=== PATIENT | female | born 1975 | race Caucasian/White ===

== ENCOUNTER 2020-11-08 12:22 | Day surgery (SDC) | payer OTHER ==
[2020-11-08] VITALS (11 sets, daily range): BP systolic 102–133; BP diastolic 59–91
[~2020-11-08] VITALS: Ht 165.1 cm; Wt 80.3 kg
[2020-11-08] MEDS ORDERED: NS IV 1000 ML 1,000 ML IV SCH (12:45)
--- NOTE | 2020-11-08 12:48 | ED GI ---
General Chief Complaint: Abdominal/GI Problems Stated Complaint: ABD PAIN History of Present Illness Date Seen by Provider: Nov 08, 2020 Time Seen by Provider: 12:40 Initial Comments 45-year-old female presents with abdominal pain which began this morning when she woke up. Initially began in her upper abdomen associated with some generalized feeling of "stomachache". Patient denies preceding illness, fever chills or nausea. She has had no vomiting. She last ate this morning around 830 a few crackers and had a normal bowel movement without any relief. Pain over the last several hours has gradually localized to her right lower abdomen and is worse with movement and better with rest. Past surgical history significant for hysterectomy and cholecystectomy. Allergies and Home Medications Allergies Coded Allergies: No Known Drug Allergies (Unverified , 11/08/20) Patient Home Medication List Home Medication List Reviewed: Yes Review of Systems Review of Systems Constitutional: No fever, No malaise, No weakness EENTM: No Symptoms Reported Respiratory: No Symptoms Reported; Denies Cough, Denies Shortness of Air Cardiovascular: Denies Chest Pain, Denies Edema, Denies Palpitations, Denies Syncope Gastrointestinal: Denies Abdomen Distended; Abdominal Pain; Denies Blood Streaked Stools, Denies Constipated, Denies Diarrhea, Denies Nausea; Poor Appetite; Denies Poor Fluid Intake, Denies Vomiting Genitourinary: Denies Burning, Denies Drainage, Denies Frequency, Denies Pain, Denies Urgency Musculoskeletal: No back pain, No joint pain Skin: No change in color, No rash Past Soxduzi-Lziqdy-Qebcyk Hx Past Med/Social Hx: Reviewed Nursing Past Med/Soc Hx Patient Social History Alcohol Use: Denies Use Smoking Status: Never a Smoker 2nd Hand Smoke Exposure: No Recent Hopitalizations: No Seasonal Allergies Seasonal Allergies: No Past Medical History Surgeries: Yes Gallbladder, Hysterectomy Respiratory: No Cardiac: No 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 oz. kg; BMI Method: General Appearance: WD/WN, no apparent distress Neck: non-tender, supple Respiratory: chest non-tender, lungs clear, normal breath sounds, no respira tory distress Cardiovascular: regular rate, rhythm, no edema, no JVD Gastrointestinal: normal bowel sounds, soft, no organomegaly, no pulsatile mass; No distended, No guarding, No rebound; tenderness (RLQ); No hernia, No mass, No hepatomegaly, No spleenomegaly Extremities: non-tender, no pedal edema Back: no CVA tenderness, no vertebral tenderness Neurologic/Psychiatric: alert, normal mood/affect, oriented x 3 Skin: normal color, warm/dry Progress/Results/Core Measures Results/Orders Lab Results Laboratory Tests Test 11/08/20 12:25 11/08/20 12:45 Range/Units Urine Color YELLOW Urine Clarity CLEAR Urine pH 5.5 5-9 Urine Specific [place] 1.010 L 1.016-1.022 Urine Protein NEGATIVE NEGATIVE Urine Glucose (UA) NEGATIVE NEGATIVE Urine Ketones NEGATIVE NEGATIVE Urine Nitrite NEGATIVE NEGATIVE Urine Bilirubin NEGATIVE NEGATIVE Urine Urobilinogen NORMAL < = 1.0 MG/DL Urine Leukocyte Esterase NEGATIVE NEGATIVE Urine RBC (Auto) NEGATIVE NEGATIVE Urine RBC NONE /HPF Urine WBC NONE /HPF Urine Squamous Epithelial Cells 2-5 /HPF Urine Crystals NONE /LPF Urine Bacteria NEGATIVE /HPF Urine Casts NONE /LPF Urine Mucus NEGATIVE /LPF Urine Culture Indicated NO White Blood Count 12.9 H 4.3-11.0 10^3/uL Red Blood Count 4.48 4.35-5.85 10^6/uL Hemoglobin 13.4 11.5-16.0 G/DL Hematocrit 39 35-52 % Mean Corpuscular Volume 88 80-99 FL Mean Corpuscular Hemoglobin 30 25-34 PG Mean Corpuscular Hemoglobin Concent 34 32-36 G/DL Red Cell Distribution Width 12.2 10.0-14.5 % Platelet Count 252 130-400 10^3/uL Mean Platelet Volume 10.0 7.4-10.4 FL Immature Granulocyte % (Auto) 0 % Neutrophils (%) (Auto) 78 H 42-75 % Lymphocytes (%) (Auto) 14 12-44 % Monocytes (%) (Auto) 6 0-12 % Eosinophils (%) (Auto) 1 0-10 % Basophils (%) (Auto) 0 0-10 % Neutrophils # (Auto) 10.1 H 1.8-7.8 X 10^3 Lymphocytes # (Auto) 1.8 1.0-4.0 X 10^3 Monocytes # (Auto) 0.8 0.0-1.0 X 10^3 Eosinophils # (Auto) 0.1 0.0-0.3 10^3/uL Basophils # (Auto) 0.0 0.0-0.1 10^3/uL Immature Granulocyte # (Auto) 0.0 0.0-0.1 10^3/uL Sodium Level 136 135-145 MMOL/L Potassium Level 3.9 3.6-5.0 MMOL/L Chloride Level 102 98-107 MMOL/L Carbon Dioxide Level 24 21-32 MMOL/L Anion Gap 10 5-14 MMOL/L Blood Urea Nitrogen 9 7-18 MG/DL Creatinine 0.58 L 0.60-1.30 MG/DL Estimat Glomerular Filtration Rate > 60 BUN/Creatinine Ratio 16 Glucose Level 131 H 70-105 MG/DL Calcium Level 9.5 8.5-10.1 MG/DL Corrected Calcium 8.5-10.1 MG/DL Total Bilirubin 0.2 0.1-1.0 MG/DL Aspartate Amino Transf (AST/SGOT) 16 5-34 U/L Alanine Aminotransferase (ALT/SGPT) 16 0-55 U/L Alkaline Phosphatase 75 40-136 U/L Total Protein 7.5 6.4-8.2 GM/DL Albumin 4.6 H 3.2-4.5 GM/DL Lipase 33 8-78 U/L My Orders Orders - MAXIMO RAMIREZ DO Ed Iv/Invasive Line Start (11/08/20 12:42) Cbc With Automated Diff (11/08/20 12:42) Comprehensive Metabolic Panel (11/08/20 12:42) Lipase (11/08/20 12:42) Urinalysis (11/08/20 12:42) Ct Abdomen/Pelvis W (11/08/20 12:42) Ns Iv 1000 Ml (Sodium Chloride 0.9%) (11/08/20 12:45) Iohexol Injection (Omnipaque 350 Mg/Ml 1 (11/08/20 13:00) Received Contrast (Hold Metformin- Contr (11/08/20 13:00) Sodium Chloride Flush (Catheter Flush Sy (11/08/20 13:00) Ns (Ivpb) (Sodium Chloride 0.9% Ivpb Bag (11/08/20 13:00) Medications Given in ED Current Medications Medications Dose Ordered Sig/Micaela Route Start Time Stop Time Status Last Admin Dose Admin Iohexol 100 ml ONCE ONCE IV 11/08/20 13:00 11/08/20 13:01 DC 11/08/20 13:07 100 ML Sodium Chloride 10 ml NEEDED PRN IV 11/08/20 13:00 11/08/20 13:07 10 ML Sodium Chloride 100 ml ONCE ONCE IV 11/08/20 13:00 11/08/20 13:01 DC 11/08/20 13:07 80 ML Vital Signs/I&O 11/08/20 12:25 Temp 36.5 Pulse 68 Resp 16 B/P (MAP) 133/85 (101) Pulse Ox 100 O2 Delivery Room Air Progress Progress Note : Progress Note Patient well-appearing, normal vital signs and in no distress. Labs without any significant abnormality. CT showing appendicitis. General surgeon called and patient on her way to [place] to same-day surgery for an appendectomy. Diagnostic Imaging Diagonstic Imaging: CT Comments FINDINGS: Gallbladder is surgically absent. There is mild biliary ductal ectasia. No focal hepatic, pancreatic, adrenal gland or splenic abnormality is identified. The kidneys are unremarkable. There is inflammation with mural thickening throughout the appendix. The appendix contains an approximately 0.7 cm calcification. There is trace pelvic free fluid. Unopacified urinary bladder is unremarkable. Probable dominant cyst is seen in the left ovary reaching 2.3 cm in size. There is bulging of L4-L5 and L5-S1 discs. IMPRESSION: Findings are compatible with acute appendicitis. No definite abscess is identified. There is a prominent left ovarian cyst and note is made of early degenerative disc disease in the lower lumbar region. Dictated on workstation # [id number] Dict: 11/08/20 1314 Trans: 11/08/20 1319 [facility] [id number] Interpreted by: MARIS HOUGH MD Electronically signed by: Departure Communication (Admissions) Time/Spoke to Admitting Phy: 13:[address] Salazar who accepts patient to "same day surgery" for appendectomy today. Impression Primary Impression: Acute appendicitis Qualified Codes: K35.30 - Acute appendicitis with localized peritonitis, without perforation or gangrene Additional Impression: Abdominal pain Qualified Codes: R10.31 - Right lower quadrant pain Disposition: 30 STILL A PATIENT Condition: Stable Admissions Decision to Admit Reason: Admit from ER (General) Decision to Admit/Date: Nov 08, 2020 Time/Decision to Admit Time: 13:30 Departure-Patient Inst. Referrals: [facility] (PCP/Family) Primary Care Physician MAXIMO RAMIREZ DO Nov 08, 2020 12:48
[2020-11-08 12:53] LABS: BACTERIA,URINE NEGATIVE /HPF; BILIRUBIN,URINE NEGATIVE (NEGATIVE); CLARITY,URINE CLEAR; COLOR,URINE YELLOW; GLUCOSE, URINE (UA) NEGATIVE (NEGATIVE); KETONES,URINE NEGATIVE (NEGATIVE); LEUKOCYTE ESTERASE ,URINE NEGATIVE (NEGATIVE); NITRITE,URINE NEGATIVE (NEGATIVE); PH,URINE 5.5 (5-9); PROTEIN,URINE NEGATIVE (NEGATIVE)
[2020-11-08 12:54] LABS: BASOPHILS % (AUTO) 0 % (0-10); EOSINOPHILS # (AUTO) 0.1 10^3/uL (0.0-0.3); EOSINOPHILS % (AUTO) 1 % (0-10); HEMATOCRIT 39 % (35-52); HEMOGLOBIN 13.4 G/DL (11.5-16.0); LYMPHOCYTES # (AUTO) 1.8 X 10^3 (1.0-4.0); LYMPHOCYTES % (AUTO) 14 % (12-44); MEAN CORPUSCULAR HEMOGLOBIN 30 PG (25-34); MEAN CORPUSCULAR HGB CONC 34 G/DL (32-36); MEAN CORPUSCULAR VOLUME 88 FL (80-99); MONOCYTES # (AUTO) 0.8 X 10^3 (0.0-1.0); MONOCYTES % (AUTO) 6 % (0-12); NEUTROPHILS # (AUTO) 10.1 X 10^3 (1.8-7.8); NEUTROPHILS % (AUTO) 78 % (42-75); PLATELET COUNT 252 10^3/uL (130-400); WHITE BLOOD COUNT 12.9 10^3/uL (4.3-11.0)
[2020-11-08] MEDS ORDERED: IOHEXOL 350 MG/ML 100 ML (OMNIPAQUE 350) VIAL IV ONE (13:00)
[2020-11-08] MEDS ORDERED: HOLD METFORMIN - RECEIVED CONTRAST 20 ML VIAL IV SCH (13:00)
[2020-11-08] MEDS ORDERED: NS 100 ML (IVPB) BAG IV ONE (13:00)
[2020-11-08] MEDS ORDERED: CATHETER FLUSH 10 ML SYR IV PRN (13:00)
--- NOTE | 2020-11-08 13:20 | Diagnostic Imaging Report ---
PROCEDURE: CT abdomen and pelvis with contrast. TECHNIQUE: Multiple contiguous axial images were obtained through the abdomen and pelvis after administration of intravenous contrast. Auto Exposure Controls were utilized during the CT exam to meet ALARA standards for radiation dose reduction. All CT scans use one or more of the following dose optimizing techniques: automated exposure control, MA and/or KvP adjustment based on patient size and exam type or iterative reconstruction. INDICATION: Right lower quadrant abdominal pain. FINDINGS: Gallbladder is surgically absent. There is mild biliary ductal ectasia. No focal hepatic, pancreatic, adrenal gland or splenic abnormality is identified. The kidneys are unremarkable. There is inflammation with mural thickening throughout the appendix. The appendix contains an approximately 0.7 cm calcification. There is trace pelvic free fluid. Unopacified urinary bladder is unremarkable. Probable dominant cyst is seen in the left ovary reaching 2.3 cm in size. There is bulging of L4-L5 and L5-S1 discs. IMPRESSION: Findings are compatible with acute appendicitis. No definite abscess is identified. There is a prominent left ovarian cyst and note is made of early degenerative disc disease in the lower lumbar region. Dictated by: Dictated on workstation # [id number]
[2020-11-08 13:25] LABS: ALANINE AMINOTRANSFERASE 16 U/L (0-55); ALBUMIN 4.6 GM/DL (3.2-4.5); ALKALINE PHOSPHATASE 75 U/L (40-136); BILIRUBIN,TOTAL 0.2 MG/DL (0.1-1.0); BUN/CREATININE RATIO 16; CALCIUM 9.5 MG/DL (8.5-10.1); CARBON DIOXIDE 24 MMOL/L (21-32); CHLORIDE 102 MMOL/L (98-107); CREATININE SERUM 0.58 MG/DL (0.60-1.30); GFR ESTIMATED > 60; GLUCOSE 131 MG/DL (70-105); LIPASE 33 U/L (8-78); POTASSIUM 3.9 MMOL/L (3.6-5.0); SODIUM 136 MMOL/L (135-145); TOTAL PROTEIN 7.5 GM/DL (6.4-8.2)
[2020-11-08] MEDS: LACTATED RINGERS 1,000 ML IV SCH ×2 (15:00→16:20)
[2020-11-08] MEDS ORDERED: ONDANSETRON 4 MG/2 ML (SDV) Z0FRAN IV ONE (15:06)
[2020-11-08] MEDS ORDERED: SUCCINYLCHOLINE INJ 100 MG/5 ML SYR/VIAL INJ ONE (15:06)
[2020-11-08] MEDS ORDERED: ROCURONIUM 10 MG/ML 5 ML SYRINGE IV ONE (15:06)
[2020-11-08] MEDS ORDERED: MIDAZOLAM 2 MG/2 ML (VERSED) VIAL INJ ONE (15:06)
[2020-11-08] MEDS ORDERED: LIDOCAINE PF 2% 5 ML (XYLOCAINE) VIAL INJ ONE (15:06)
[2020-11-08] MEDS ORDERED: NEOSTIGMINE 3 MG/3 ML VIAL IV ONE (15:07)
[2020-11-08] MEDS ORDERED: GLYCOPYRROLATE 0.2 MG/ML (ROBINUL) 2 ML VIAL IV ONE (15:07)
[2020-11-08] MEDS ORDERED: fentaNYL INJECTION 100 MCG/2 ML AMP IV ONE ×2 (15:22→16:35)
[2020-11-08] MEDS ORDERED: ceFAZolin 2 GM IV Premixed 50 ML IV ONE (15:41)
[2020-11-08] MEDS ORDERED: METOCLOPRAMIDE INJ 10 MG/2 ML (REGLAN) IV ONE (15:51)
[2020-11-08] MEDS ORDERED: LIDOCAINE/EPI 1%-1:100,000 (XYLOCAINE) 50 ML INJ ONE (16:10)
[2020-11-08] MEDS ORDERED: SEVOFLURANE (ULTANE) 15 ML INHAL SOLN INH ONE (16:36)
[2020-11-08] MEDS ORDERED: ACHD5005 PO (16:37)
[2020-11-08] MEDS ORDERED: DOCU-143 PO (16:37)
[2020-11-08] MEDS ORDERED: proPOfol 200 MG/20 ML (DIPRIVAN) VIAL IV ONE (16:37)
[2020-11-08] MEDS ORDERED: PHENYLEPHRINE 100 MCG/ML 10 ML (ANESTHESIA) SYR IV ONE (16:38)
[2020-11-08] MEDS ORDERED: metroNIDAZOLE 500MG/100ML IVPB 100 ML IV ONE (17:30)
[2020-11-08] MEDS ORDERED: HYDROcodone/APAP 5 MG/325 MG (LORTAB) TAB ONE (18:04)
[2020-11-08] MEDS ORDERED: HYDROcodone/APAP 5 MG/325 MG (LORTAB) TAB PO ONE (18:15)
== END 2020-11-08 18:55 | disposition home or self-care (01) ==
LOC: ER FS 12:25 → SDC 13:57
PROVIDERS: ATTEND Surgery
DX: K35.80 Unspecified acute appendicitis (principal); Z90.710 Acquired absence of both cervix and uterus
CPT/HCPCS: 36415; 74177; 80053; 81000; 83690; 85025

== ENCOUNTER → 2020-11-08 | Day surgery (SDC) | payer OTHER ==
[~2020-11-08] MED LIST: ACHD5005 PO; DOCU-143 PO; GLYCOPYRROLATE 0.2 MG/ML (ROBINUL) 2 ML VIAL ONE; HYDROmorphone 2 MG/ML VIAL (DILAUDID) IV ONE; LIDOCAINE PF 2% 5 ML (XYLOCAINE) VIAL ONE; LIDOCAINE/EPI 1%-1:100,000 (XYLOCAINE) 50 ML ONE; METOCLOPRAMIDE INJ 10 MG/2 ML (REGLAN) ONE; MIDAZOLAM 2 MG/2 ML (VERSED) VIAL ONE; NEOSTIGMINE 3 MG/3 ML VIAL ONE; ONDANSETRON 4 MG/2 ML (SDV) Z0FRAN IVP PRN; ONDANSETRON 4 MG/2 ML (SDV) Z0FRAN ONE; PHENYLEPHRINE 100 MCG/ML 10 ML (ANESTHESIA) SYR ONE; ROCURONIUM 10 MG/ML 5 ML SYRINGE IV ONE; SEVOFLURANE (ULTANE) 15 ML INHAL SOLN ONE; SUCCINYLCHOLINE INJ 100 MG/5 ML SYR/VIAL ONE; ceFAZolin 2 GM IV Premixed 50 ML IV ONE; ceFAZolin 2 GM IV Premixed 50 ML ONE; fentaNYL INJECTION 100 MCG/2 ML AMP IV ONE; fentaNYL INJECTION 100 MCG/2 ML AMP ONE; metroNIDAZOLE 500MG/100ML IVPB 100 ML IV ONE; metroNIDAZOLE 500MG/100ML IVPB 100 ML ONE; proPOfol 200 MG/20 ML (DIPRIVAN) VIAL IV ONE
[2020-11-08] MEDS: LACTATED RINGERS 1,000 ML IV PRN ×2 (15:12→16:21)
== END | disposition home or self-care (01) ==
LOC: SDC 13:57
PROVIDERS: ATTEND Surgery
DX: K35.80 Unspecified acute appendicitis (principal); Z53.9 Procedure and treatment not carried out, unspecified reason; Z90.710 Acquired absence of both cervix and uterus; Z20.822 Contact with and (suspected) exposure to COVID-19
CPT/HCPCS: 87081; 88304; U0002; 87635

== ENCOUNTER 2021-12-18 05:32 | Outpatient (CLI) | payer OTHER ==
[~2021-12-18] VITALS: Ht 165.1 cm; Wt 82.7 kg
[~2021-12-18 05:32] MED LIST changes: -GLYCOPYRROLATE 0.2 MG/ML (ROBINUL) 2 ML VIAL ONE; -HYDROmorphone 2 MG/ML VIAL (DILAUDID) IV ONE; -LIDOCAINE PF 2% 5 ML (XYLOCAINE) VIAL ONE; -LIDOCAINE/EPI 1%-1:100,000 (XYLOCAINE) 50 ML ONE; -METOCLOPRAMIDE INJ 10 MG/2 ML (REGLAN) ONE; -MIDAZOLAM 2 MG/2 ML (VERSED) VIAL ONE; -NEOSTIGMINE 3 MG/3 ML VIAL ONE; -ONDANSETRON 4 MG/2 ML (SDV) Z0FRAN IVP PRN; -ONDANSETRON 4 MG/2 ML (SDV) Z0FRAN ONE; -PHENYLEPHRINE 100 MCG/ML 10 ML (ANESTHESIA) SYR ONE; -ROCURONIUM 10 MG/ML 5 ML SYRINGE IV ONE; -SEVOFLURANE (ULTANE) 15 ML INHAL SOLN ONE; -SUCCINYLCHOLINE INJ 100 MG/5 ML SYR/VIAL ONE; -ceFAZolin 2 GM IV Premixed 50 ML IV ONE; -ceFAZolin 2 GM IV Premixed 50 ML ONE; -fentaNYL INJECTION 100 MCG/2 ML AMP IV ONE; -fentaNYL INJECTION 100 MCG/2 ML AMP ONE; -metroNIDAZOLE 500MG/100ML IVPB 100 ML IV ONE; -metroNIDAZOLE 500MG/100ML IVPB 100 ML ONE; -proPOfol 200 MG/20 ML (DIPRIVAN) VIAL IV ONE
[2021-12-18] MEDS ORDERED: MULT-141 PO (14:41)
[2021-12-18] MEDS ORDERED: SEMA0.253 SQ (14:41)
[2021-12-18] MEDS ORDERED: ERGO1250 PO (14:41)
== END 2021-12-18 14:43 ==
LOC: PREOP 05:32
PROVIDERS: ATTEND Surgery
DX: Z01.818 Encounter for other preprocedural examination (principal)

== ENCOUNTER 2021-12-26 07:59 | Day surgery (SDC) | payer OTHER ==
[~2021-12-26] VITALS: Ht 165 cm; Wt 83.0 kg
[~2021-12-26 07:59] MED LIST changes: +ERGO1250 PO; +MULT-141 PO; +SEMA0.253 SQ
[2021-12-26] MEDS ORDERED: LACTATED RINGERS 1,000 ML IV ONE (08:05)
[2021-12-26] MEDS ORDERED: LACTATED RINGERS 1,000 ML IV STA (08:14)
[2021-12-26 08:17] VITALS: BP 113/79
--- NOTE | 2021-12-26 08:36 | Progress Note-Pre Operative ---
Pre-Operative Progress Note H&P Reviewed The H&P was reviewed, patient examined and no changes noted. Date Seen by Provider: Dec 26, 2021 Time Seen by Provider: 08:36 Date H&P Reviewed: Dec 26, 2021 Time H&P Reviewed: 08:36 Pre-Operative Diagnosis: screening colonoscopy ROSALIND MAURICIO DO Dec 26, 2021 08:36
[2021-12-26] MEDS ORDERED: PROPOFOL INJECTION 50 ML IV ONE (08:50)
--- NOTE | 2021-12-26 09:19 | Anesthesia-General Post-Op ---
MAC Patient Condition Mental Status/LOC: Same as Preop Cardiovascular: Satisfactory Nausea/Vomiting: Absent Respiratory: Satisfactory Pain: Controlled Complications: Absent Post Op Complications Complications None Follow Up Care/Instructions Patient Instructions None needed. Anesthesiology Discharge Order Discharge Order Patient is doing well, no complaints, stable vital signs, no apparent adverse anesthesia problems. No complications reported per nursing. NICOLETTE JACINTO CRNA Dec 26, 2021 09:19
[2021-12-26 09:20] VITALS: BP 103/65
--- NOTE | 2021-12-26 09:22 | Progress Note-Post Operative ---
Post-Operative Progess Note Surgeon (s)/Case Manager Specialist (s) Surgeon ROSALIND MAURICIO DO Case Manager Specialist: na Pre-Operative Diagnosis screening colonoscopy Post-Operative Diagnosis normal colon Procedure & Operative Findings Date of Procedure 12/26/21 Procedure Performed/Findings colonoscopy Anesthesia Type per electrical tryout person Estimated Blood Loss Estimated blood loss (mL): none Specimens/Packing Specimens Removed na ROSALIND MAURICIO DO Dec 26, 2021 09:22
[2021-12-26 09:23] VITALS: BP 108/65
--- NOTE | 2021-12-26 09:24 | Discharge Inst-Simple/Standard ---
Discharge Inst-Standard Patient Instructions/Follow Up Plan of Care/Instructions/FU: Marie 10 years unless family history of colon cancer and then 5 years. Any issues before that be seen at that time. Activity as Tolerated: Yes Discharge Diet: Regular Diet ROSALIND MAURICIO DO Dec 26, 2021 09:23
[2021-12-26 09:25] VITALS: BP 108/65
[2021-12-26 09:40] VITALS: BP 111/72
[2021-12-26 09:53] VITALS: BP 110/65
--- NOTE | 2021-12-26 12:40 | OPERATIVE REPORT ---
DATE OF SERVICE: 12/26/2021 PREOPERATIVE DIAGNOSIS: Screening colonoscopy. POSTOPERATIVE DIAGNOSIS: Normal colon. PROCEDURE: Colonoscopy. SURGEON: Rosalind Salazar DO ANESTHESIA: Per DIRECTOR SURGICAL. ESTIMATED BLOOD LOSS: None. COMPLICATIONS: None. INDICATIONS: The patient is a 46-year-old female needing screening colonoscopy. She understands risks and benefits of procedure and wishes to proceed. Consent was signed in the chart. DESCRIPTION OF PROCEDURE: The patient was taken to the endoscopy suite, placed in left lateral recumbent position. Timeout was performed. Digital rectal exam was performed. No palpable polyps, masses or ulcerations. Scope was inserted in the rectum and advanced all the way to cecum with minimal difficulty. Prep was adequate. Scope was slowly retracted back. No polyps, masses or ulcerations within the cecum, ascending, transverse, descending and sigmoid colon. Once in the rectum, scope was retroflexed noting no other pathology. Scope was returned to its normal position, slowly withdrawn until completely removed. The patient tolerated procedure well without any complications. She was taken to recovery room in stable condition. RECOMMENDATIONS: The patient will need repeat colonoscopy in 10 years unless family history of colon cancer, which would then be 5 years. Any issues before that be seen at that time. CC: [facility][1] -- requested, unable to deliver. Job ID: [id number] DocumentID: [id number] Dictated Date: 12/26/2021 09:25:43 Pneumatic Tester Date: 12/26/2021 12:39:35 Dictated By: ROSALIND SALAZAR DO
== END 2021-12-26 09:52 | disposition home or self-care (01) ==
LOC: ENDO 07:59
PROVIDERS: ATTEND Surgery
DX: Z12.11 Encounter for screening for malignant neoplasm of colon (principal); Z87.891 Personal history of nicotine dependence

== ENCOUNTER 2022-06-09 15:45 | Emergency (ER) | payer OTHER ==
[~2022-06-09] VITALS: Ht 165.1 cm; Wt 81.6 kg
--- NOTE | 2022-06-09 15:49 | ED Chest Pain ---
General Chief Complaint: Chest Pain Stated Complaint: CHEST TIGHTNESS BACK PAIN SOB History of Present Illness Date Seen by Provider: Jun 09, 2022 Time Seen by Provider: 15:48 Initial Comments 47-year-old female with no significant PMH is here with complaints of chest discomfort which began around 1 PM today. Patient states that she does not have actual pain but just some type of tightness or discomfort in the retrosternal area. Patient states that this is associated occasionally with a little bit of shortness of breath when the pain hits. Pain is off-and-on and once she reached the ER the pain disappeared. Denies palpitations, recent illness, fever, diarrhea, cough, nausea and vomiting, dizziness. Allergies and Home Medications Allergies Coded Allergies: No Known Drug Allergies (Unverified , 11/08/20) Patient Home Medication List Home Medication List Reviewed: Yes Ergocalciferol (Vitamin D2) (Vitamin D2) 1,250 Mcg Capsule, 1,250 MCG PO WEEK, (Reported) Entered as Reported by: LEVI TAPIA on 12/18/21 144 Multivit with Calcium,Iron,Min (Women's Daily Formula) 1 Each Tablet, 1 EACH PO DAILY, (Reported) Entered as Reported by: LEVI TAPIA on 12/18/21 144 Semaglutide (Wegovy) 0.25 Mg/0.5 Ml Pen.injctr, 0.25 MG SQ WEEK, (Reported) Entered as Reported by: LEVI TAPIA on 12/18/21 1441 Review of Systems Review of Systems Constitutional: no symptoms reported EENTM: No Symptoms Reported Respiratory: No Symptoms Reported Cardiovascular: Chest Pain Gastrointestinal: No Symptoms Reported Genitourinary: No Symptoms Reported Musculoskeletal: no symptoms reported Skin: no symptoms reported Psychiatric/Neurological: No Symptoms Reported Endocrine: No Symptoms Reported Hematologic/Lymphatic: No Symptoms Reported Past Ndmpxpc-Tqzgwo-Wclccy Hx Immunizations Up To Date First/Initial COVID19 Vaccinat: yes Second COVID19 Vaccination Ponce: yes Third COVID19 Vaccination Date: yes Seasonal Allergies Seasonal Allergies: No Past Medical History Surgeries: Yes (c/s x2, ) Appendectomy, Section, Gallbladder, Hysterectomy Respiratory: No Cardiac: No 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 oz. kg; 30.48 BMI Method: General Appearance: No Apparent Distress, WD/WN HEENT: PERRL/EOMI Neck: Full Range of Motion Respiratory: Chest Non Tender, Lungs Clear, Normal Breath Sounds, No Accessory Muscle Use, No Respiratory Distress Cardiovascular: Regular Rate, Rhythm, No Edema, No Murmur, Normal Peripheral Pulses Gastrointestinal: Normal Bowel Sounds, Non Tender, Soft Extremity: Normal Range of Motion Neurologic/Psychiatric: Alert, Oriented x3, Normal Mood/Affect Skin: Normal Color Progress/Results/Core Measures Results/Orders Lab Results Laboratory Tests Test 06/09/22 15:44 06/09/22 18:40 Range/Units White Blood Count 8.8 4.3-11.0 10^3/uL Red Blood Count 4.06 3.80-5.11 10^6/uL Hemoglobin 12.3 11.5-16.0 g/dL Hematocrit 36 35-52 % Mean Corpuscular Volume 87 80-99 fL Mean Corpuscular Hemoglobin 30 25-34 pg Mean Corpuscular Hemoglobin Concent 35 32-36 g/dL Red Cell Distribution Width 12.5 10.0-14.5 % Platelet Count 235 130-400 10^3/uL Mean Platelet Volume 9.8 9.0-12.2 fL Immature Granulocyte % (Auto) 0 % Neutrophils (%) (Auto) 62 42-75 % Lymphocytes (%) (Auto) 28 12-44 % Monocytes (%) (Auto) 7 0-12 % Eosinophils (%) (Auto) 2 0-10 % Basophils (%) (Auto) 1 0-10 % Neutrophils # (Auto) 5.4 1.8-7.8 10^3/uL Lymphocytes # (Auto) 2.4 1.0-4.0 10^3/uL Monocytes # (Auto) 0.6 0.0-1.0 10^3/uL Eosinophils # (Auto) 0.2 0.0-0.3 10^3/uL Basophils # (Auto) 0.1 0.0-0.1 10^3/uL Immature Granulocyte # (Auto) 0.0 0.0-0.1 10^3/uL Sodium Level 136 135-145 MMOL/L Potassium Level 3.8 3.6-5.0 MMOL/L Chloride Level 103 98-107 MMOL/L Carbon Dioxide Level 24 21-32 MMOL/L Anion Gap 9 5-14 MMOL/L Blood Urea Nitrogen 10 7-18 MG/DL Creatinine 0.70 0.60-1.30 MG/DL Estimat Glomerular Filtration Rate 108 BUN/Creatinine Ratio 14 Glucose Level 104 70-105 MG/DL Calcium Level 9.5 8.5-10.1 MG/DL Corrected Calcium 8.5-10.1 MG/DL Magnesium Level 1.9 1.6-2.4 MG/DL Total Bilirubin 0.2 0.1-1.0 MG/DL Aspartate Amino Transf (AST/SGOT) 18 5-34 U/L Alanine Aminotransferase (ALT/SGPT) 20 0-55 U/L Alkaline Phosphatase 92 40-136 U/L Troponin I < 0.30 <0.30 NG/ML Pro-B-Type Natriuretic Peptide 22.4 <125.0 PG/ML Total Protein 7.5 6.4-8.2 GM/DL Albumin 4.6 H 3.2-4.5 GM/DL Serum Alcohol < 10 <10 MG/DL My Orders Orders - JANI BALLESTEROS MD Chest 1 View Ap/Pa Only (06/09/22 16:03) Cbc With Automated Diff (06/09/22 16:03) Magnesium (06/09/22 16:03) Ekg Tracing (06/09/22 16:03) Comprehensive Metabolic Panel (06/09/22 16:03) Monitor-Rhythm Ecg Trace Only (06/09/22 16:03) Aspirin Chewable Tablet (Baby Aspirin Ch (06/09/22 16:15) Ed Iv/Invasive Line Start (06/09/22 16:03) Troponin I Fs (06/09/22 16:03) Probnp Fs (06/09/22 16:03) Alcohol (06/09/22 16:03) Drug Screen Stat (Urine) (06/09/22 16:03) Ua Culture If Indicated (06/09/22 16:03) Medications Given in ED Current Medications Medications Dose Ordered Sig/Micaela Route Start Time Stop Time Status Last Admin Dose Admin Aspirin 324 mg ONCE ONCE PO 06/09/22 16:15 06/09/22 16:16 DC 06/09/22 16:09 324 MG Vital Signs/I&O 06/09/22 15:45 Temp 37.1 Pulse 73 Resp 19 B/P (MAP) 153/93 (113) Pulse Ox 97 O2 Delivery Room Air Progress Progress Note : Progress Note 1. ACS RULE OUT: - Troponin/ EKG: normal - Labs unremarkable - UA/ UDS normal - ASA 324mg STAT upon arrival - No chest pain while in ER. Pt has no other symptoms - Follow up with PCP in 3 days -The patient was seen in the ED, and treated appropriately to presentation at a specific point in time. Patient is informed that there is a possibility that disease and illness can evolve and change in acuity rapidly or slowly after patient is discharged from the ER. Precautionary advice given to the patient for immediate return to ER if symptoms worsen or do not resolve, and to seek emergency care sooner rather than later. Pt also advised on the importance of PCP follow up and compliance with management and follow up plan with PCP and/or specialist, as this is part of the management plan. Pt verbally expressed understanding. Diagnostic Imaging Diagonstic Imaging: Xray Plain Films/CT/US/NM/MRI: chest Comments [facility], [place] NAME: MARGARITA LEHMAN [facility] REC#: [id number] PT STATUS: REG ER : 1975 PHYSICIAN: JANI BALLESTEROS MD ADMIT DATE: 06/09/22/ER FS Signed Date of Exam:06/09/22 CHEST 1 VIEW AP/PA ONLY EXAMINATION: Chest 1 view. HISTORY: Chest tightness. Neck pain. COMPARISON: None available. FINDINGS: The lung volumes are normal. No focal consolidation is seen. No large pleural effusion or pneumothorax is seen. The cardiomediastinal silhouette is normal in size and contour. No acute osseous abnormality is seen. IMPRESSION: No acute pleuroparenchymal process. Dictated by: Dictated on workstation # [id number] Dict: 06/09/22 1611 Trans: 06/09/22 1631 [facility] [id number] Interpreted by: HARMONY THURSTON DO Electronically signed by: HARMONY THURSTON DO 06/09/22 1631 Departure Impression Primary Impression: Ruled out for myocardial infarction Additional Impression: GERD (gastroesophageal reflux disease) Qualified Codes: K21.9 - Gastro-esophageal reflux disease without esophagitis Disposition: HOME, SELF-CARE Condition: Improved Departure-Patient Inst. Referrals: [facility] (PCP/Family) Primary Care Physician Patient Instructions: Acid Reflux and Gastroesophageal Reflux Disease in Adults Add. Discharge Instructions: - No chest pain while in ER. Pt has no other symptoms - Follow up with PCP in 3 days - Return to ER if chest pain returns All discharge instructions reviewed with patient and/or family. Voiced und erstanding. JANI BALLESTEROS MD Jun 09, 2022 15:49
[2022-06-09 16:08] LABS: BASOPHILS # (AUTO) 0.1 10^3/uL (0.0-0.1); BASOPHILS % (AUTO) 1 % (0-10); EOSINOPHILS # (AUTO) 0.2 10^3/uL (0.0-0.3); EOSINOPHILS % (AUTO) 2 % (0-10); HEMATOCRIT 36 % (35-52); HEMOGLOBIN 12.3 g/dL (11.5-16.0); LYMPHOCYTES # (AUTO) 2.4 10^3/uL (1.0-4.0); LYMPHOCYTES % (AUTO) 28 % (12-44); MEAN CORPUSCULAR HEMOGLOBIN 30 pg (25-34); MEAN CORPUSCULAR HGB CONC 35 g/dL (32-36); MEAN CORPUSCULAR VOLUME 87 fL (80-99); MEAN PLATELET VOLUME 9.8 fL (9.0-12.2); MONOCYTES # (AUTO) 0.6 10^3/uL (0.0-1.0); MONOCYTES % (AUTO) 7 % (0-12); NEUTROPHILS # (AUTO) 5.4 10^3/uL (1.8-7.8); NEUTROPHILS % (AUTO) 62 % (42-75); PLATELET COUNT 235 10^3/uL (130-400); WHITE BLOOD COUNT 8.8 10^3/uL (4.3-11.0)
--- NOTE | 2022-06-09 16:14 | Diagnostic Imaging Report ---
EXAMINATION: Chest 1 view. HISTORY: Chest tightness. Neck pain. COMPARISON: None available. FINDINGS: The lung volumes are normal. No focal consolidation is seen. No large pleural effusion or pneumothorax is seen. The cardiomediastinal silhouette is normal in size and contour. No acute osseous abnormality is seen. IMPRESSION: No acute pleuroparenchymal process. Dictated by: Dictated on workstation # [id number]
[2022-06-09] MEDS ORDERED: ASPIRIN 81 MG CHEW (CHILDREN'S ASA) PO ONE (16:15)
[2022-06-09 16:20] LABS: BUN/CREATININE RATIO 14; CARBON DIOXIDE 24 MMOL/L (21-32); CHLORIDE 103 MMOL/L (98-107); GFR ESTIMATED 108; POTASSIUM 3.8 MMOL/L (3.6-5.0); SODIUM 136 MMOL/L (135-145)
[2022-06-09 16:21] LABS: ALANINE AMINOTRANSFERASE 20 U/L (0-55); ALBUMIN 4.6 GM/DL (3.2-4.5); ALKALINE PHOSPHATASE 92 U/L (40-136); BILIRUBIN,TOTAL 0.2 MG/DL (0.1-1.0); CALCIUM 9.5 MG/DL (8.5-10.1); GLUCOSE 104 MG/DL (70-105); MAGNESIUM 1.9 MG/DL (1.6-2.4); TOTAL PROTEIN 7.5 GM/DL (6.4-8.2)
[2022-06-09 18:47] LABS: BILIRUBIN,URINE NEGATIVE (NEGATIVE); CLARITY,URINE CLEAR; COLOR,URINE YELLOW; GLUCOSE, URINE (UA) NEGATIVE (NEGATIVE); KETONES,URINE NEGATIVE (NEGATIVE); LEUKOCYTE ESTERASE ,URINE NEGATIVE (NEGATIVE); NITRITE,URINE NEGATIVE (NEGATIVE); PROTEIN,URINE NEGATIVE (NEGATIVE)
[2022-06-09 18:51] LABS: BACTERIA,URINE FEW /HPF; SQUAMOUS EPITHELIAL CELL,UR 25-50 /HPF
[2022-06-09 18:56] VITALS: BP 119/68
[2022-06-09 19:00] LABS: AMPHETAMINE SCREEN, URINE NEGATIVE (NEGATIVE); BARBITURATE SCREEN URINE NEGATIVE (NEGATIVE); BENZODIAZEPINES SCREEN URINE NEGATIVE (NEGATIVE); CANNABINOID SCREEN, URINE POSITIVE (NEGATIVE); COCAINE SCREEN URINE NEGATIVE (NEGATIVE); METHADONE STAT NEGATIVE (NEGATIVE); OPIATE SCREEN URINE NEGATIVE (NEGATIVE); OXYCODONE STAT NEGATIVE (NEGATIVE); PROPOXYPHENE STAT NEGATIVE (NEGATIVE); TRICYCLIC ANTIDEPRESSANTS SCRE NEGATIVE (NEGATIVE)
== END 2022-06-09 18:58 | disposition home or self-care (01) ==
LOC: EDUNIT# 15:45 → ER FS 15:47
DX: K21.9 Gastro-esophageal reflux disease without esophagitis (principal)
CPT/HCPCS: 36415; 71045; 80053; 80306; 81000; 83735; 83880; 84484; 85025; 93005; 93041; 99284; G0480; 80320